=== PATIENT | male | born 1960 | race Hispanic/Latino ===

== ENCOUNTER 2016-09-21 12:15 | Observation (INO) | payer SELFPAY ==
[~2016-09-21] VITALS: Ht 167.6 cm; Wt 89.0 kg
[2016-09-21 12:47] LABS: HEMOGLOBIN 14.3 g/dl (14.0-18.0); IMMATURE GRANULOCYTES 0.2 % (0.0-1.0); MEAN CELL VOLUME 89.4 fL CALC (80.0-100.0); MEAN CORPUSCULAR HGB 29.7 pG CALC (26.0-32.0); MEAN CORPUSCULAR HGB CONC 33.3 g/L CALC (32.0-36.0); NEUT# 4.98 thou/uL (1.82-7.42); RED BLOOD COUNT 4.81 mill/uL (4.70-6.10); RED CELL DISTRI WIDTH 12.2 % (11.5-15.5)
[2016-09-21 13:07] LABS: ALKALINE PHOSPHATASE 53 u/l (38-126); ANION GAP 13 (6-22 (CALC)); BILIRUBIN, TOTAL 0.6 mg/dL (0.0-1.4); BUN 15 mg/dL (9-20); BUN/CREATININE RATIO 19 (12-20 (CALC)); CALCIUM 9.5 mg/dL (8.4-10.2); CARBON DIOXIDE 27 mmol/l (22-30); CHLORIDE 104 mmol/l (95-108); CREATININE 0.8 mg/dL (0.7-1.3); GFR > 60 ML/MIN (>=60 (CALC)); GFR FOR AFR.AMER. > 60 ML/MIN (>=60 (CALC)); GLUCOSE 104 mg/dL (75-110); POTASSIUM 3.8 mmol/l (3.5-5.1); SGOT/AST 16 u/l (17-59); SGPT/ALT 29 u/l (21-72); SODIUM 140 mmol/l (137-146); TOTAL PROTEIN 6.9 g/dL (6.3-8.2)
[2016-09-21 13:19] LABS: MYOGLOBIN 22 ng/mL (0 - 121)
[2016-09-21] MEDS ORDERED: BLOOD PRESSURE MED 2 (14:35)
[2016-09-21] MEDS ORDERED: BLOOD PRESSURE MED 1 (14:35)
[2016-09-21] MEDS ORDERED: NITROSTAT0.4 MG SL (14:35)
[2016-09-21 15:38] VITALS: BP 139/82
[2016-09-21 19:51] VITALS: BP 120/67
[2016-09-22] VITALS: BP 109/62; BP 136/81
[2016-09-22 04:22] VITALS: BP 119/69
[2016-09-22 04:47] LABS: URINE BILIRUBIN - DIPSTICK NEGATIVE (NEGATIVE); URINE BLOOD DIPSTICK NEGATIVE (NEGATIVE); URINE CLARITY SLIGHT CLOUDY; URINE COLOR YELLOW; URINE GLUCOSE - DIPSTICK 100 mg/dL (NEGATIVE); URINE KETONE NEGATIVE (NEGATIVE); URINE LEUK ESTERASE NEGATIVE (NEGATIVE); URINE NITRITE - DIPSTICK NEGATIVE (Negative); URINE PROTEIN - DIPSTICK NEGATIVE (NEG-TRACE); URINE SPECIFIC GRAVITY 1.025; URINE UROBILINOGEN - DIPSTICK 0.2 E.U./dL (0.2)
[2016-09-22 05:45] LABS: HEMATOCRIT 44.9 % (39.0-50.0); HEMOGLOBIN 14.9 g/dl (14.0-18.0); IMMATURE GRANULOCYTES 0.9 % (0.0-1.0); MEAN CELL VOLUME 89.8 fL CALC (80.0-100.0); MEAN CORPUSCULAR HGB 29.8 pG CALC (26.0-32.0); MEAN CORPUSCULAR HGB CONC 33.2 g/L CALC (32.0-36.0); NEUT# 4.65 thou/uL (1.82-7.42); RED CELL DISTRI WIDTH 12.5 % (11.5-15.5)
[2016-09-22 05:55] LABS: ANION GAP 12 (6-22 (CALC)); BUN 15 mg/dL (9-20); BUN/CREATININE RATIO 19 (12-20 (CALC)); CALCULATED LDLCHOLESTEROL 57 mg/dL (62-129 (CALC)); CARBON DIOXIDE 24 mmol/l (22-30); CHLORIDE 107 mmol/l (95-108); CREATININE 0.8 mg/dL (0.7-1.3); GFR > 60 ML/MIN (>=60 (CALC)); GFR FOR AFR.AMER. > 60 ML/MIN (>=60 (CALC)); GLUCOSE 100 mg/dL (75-110); HDL CHOLESTEROL 39 mg/dL (>=40); POTASSIUM 4.2 mmol/l (3.5-5.1); SODIUM 139 mmol/l (137-146); TOTAL CHOLESTEROL 126 mg/dl (0-199); TOTAL TRIGLYCERIDES 151 mg/dl (30-149); VLDL CHOLESTROL 30 mg/dl (8-62 (CALC))
[2016-09-22 07:34] VITALS: BP 107/66
[2016-09-22] MEDS ORDERED: ADLT ASA LOW81 MG PO (10:01)
== END 2016-09-22 11:20 | disposition home or self-care (01) | DRG 311 ==
LOC: ENPENDDIS → ED 12:15 → ED-I 14:00 → ED 15:07 → MS2 15:08
PROVIDERS: Emergency Medicine; ADMIT Internal Medicine; ATTEND Internal Medicine
DX: I20.9 Angina pectoris, unspecified (principal); I10 Essential (primary) hypertension; R07.89 Other chest pain; Z72.89 Other problems related to lifestyle
CPT/HCPCS: G0378; J1650

== ENCOUNTER 2018-01-12 23:09 | Observation (INO) | payer BC ==
[~2018-01-12] VITALS: Ht 167.6 cm; Wt 92.3 kg
[~2018-01-12 23:09] MED LIST: ADLT ASA LOW81 MG PO; BLOOD PRESSURE MED 1; BLOOD PRESSURE MED 2; NITROSTAT0.4 MG SL
--- NOTE | 2018-01-12 23:11 | NUR ---
EKG DONE. LABS DRAWN.
[2018-01-12 23:41] LABS: HEMATOCRIT 41.9 % (39.0-50.0); HEMOGLOBIN 14.2 g/dl (14.0-18.0); IMMATURE GRANULOCYTES 0.1 % (0.0-5.0); MEAN CELL VOLUME 90.1 fL CALC (80.0-100.0); MEAN CORPUSCULAR HGB 30.5 pG CALC (26.0-32.0); MEAN CORPUSCULAR HGB CONC 33.9 g/L CALC (32.0-36.0); NEUT# 4.74 thou/uL (1.82-7.42); RED BLOOD COUNT 4.65 mill/uL (4.70-6.10)
[2018-01-12 23:52] LABS: ALBUMIN 3.7 g/dL (3.2-5.0); ALKALINE PHOSPHATASE 56 u/l (38-126); AMYLASE 53 u/l (30-110); ANION GAP 16 (6-22 (CALC)); BILIRUBIN, TOTAL 0.4 mg/dL (0.0-1.4); BUN 19 mg/dL (9-20); BUN/CREATININE RATIO 21 (12-20 (CALC)); CARBON DIOXIDE 25 mmol/l (22-30); CHLORIDE 104 mmol/l (95-108); CREATININE 0.9 mg/dL (0.7-1.3); GFR > 60 ML/MIN (>=60 (CALC)); GFR FOR AFR.AMER. > 60 ML/MIN (>=60 (CALC)); LIPASE 152 u/l (23-300); POTASSIUM 3.6 mmol/l (3.5-5.1); SGOT/AST 26 u/l (17-59); SGPT/ALT 42 u/l (21-72); SODIUM 142 mmol/l (137-146); TOTAL PROTEIN 6.3 g/dL (6.3-8.2)
[2018-01-13 00:04] LABS: MYOGLOBIN 26 ng/mL (0 - 121)
--- NOTE | 2018-01-13 02:48 | NUR ---
REPORT CALLED TO JANEEN.
--- NOTE | 2018-01-13 03:00 | NUR ---
TO FLOOR VIA STRETCHER/ON MONITOR. AT BEDSIDE. NAD.
[2018-01-13 03:04] VITALS: BP 138/82
--- NOTE | 2018-01-13 03:04 | NUR ---
PT ARRIVED ON FLOOR VIA STRETCHER WITH ER NURSE. PT AMBULATED TO SCALE, THEN TO BED. VITALS OBTAINED. PT HAD STEADY GAIT. PT DENIES PAIN. RESP EVEN AND UNLABORED. TELE ON. LUNGS CLEAR/DIMINISHED IN BASES. ABD SOFT, ACTIVE BOWEL SOUNDS. PT REPORTS HAVING A BM RIGHT BEFORE COMING TO THE FLOOR. PEDAL PULSES PALPATED BILAT. IV LAC PATENT; FLUSHED WITHOUT DIFFICULTY. ADMIT QUESTIONS OBTAINED. PT REPORTS NOT TAKING ANY HOME MEDS FOR THE LAST COUPLE MONTHS. FAMILY AT BEDSIDE. PT ENCOURAGED TO CALL FOR ASSISTANCE AMBULATING. FREQUENT ROUNDS MADE. CALL LIGHT WITHIN REACH.
--- NOTE | 2018-01-13 05:10 | NUR ---
PT WOKE UPON ENTRY. PT DENIES PAIN. RESP EVEN AND UNLABORED. ASSESSMENT UNCHANGED. TELE ON. FAMILY AT BEDSIDE. CALL LIGHT WITHIN REACH.
[2018-01-13 05:48] VITALS: BP 125/73
--- NOTE | 2018-01-13 07:15 | NUR ---
BEDSIDE REPORT RECEIVED BY MAHAMED. PT IS RESTING IN BED WITH NO S/S OF DISTRESS NOTED. PT DENIES NEEDS AT THIS TIME.
[2018-01-13 07:44] VITALS: BP 138/84
--- NOTE | 2018-01-13 08:45 | NUR ---
PT IS SITTING IN THE SIDE OF THE BED. ASSESSMENT DONE . TELE IN PLACE. RESPS EVEN AND UNLABORED. PT IS A&O X3. PT DENIES PAIN AT THIS TIME. PT JUST STATED THAT HE FEELS HIS LEGS SOMETIMES NUMB BUT ABLE TO MOVE THEM. IN ROOM. SAFETY PRECAUTIONS REINFORCED AND CALL LIGHT IN REACH.
[2018-01-13 09:31] LABS: TSH, 3RD GENERATION 4.25 uIU/mL (0.47 - 4.68)
[2018-01-13 11:20] LABS: CHOLESTEROL HDL RATIO 3.8 (<4.4 (CALC))
--- NOTE | 2018-01-13 12:03 | NUR ---
PT IS EATING HIS LUNCH WITH NO S/S OF DISTRESS NOTED. FAMILY IN ROOM. PT DENIES NEEDS AT THIS TIME. CALL LIGHT IN REACH.
[2018-01-13 12:46] VITALS: BP 127/77
[2018-01-13] MEDS ORDERED: ASPIRIN ADULT L81 M2 PO (13:19)
[2018-01-13] MEDS ORDERED: AMLODIPINE BESYL5 MG PO (13:19)
--- NOTE | 2018-01-13 15:33 | NUR ---
Discharge instructions given. Patient verbalizes understanding of same. Discharged in stable condition via Wheelchair to Home with spouse. All belongings sent with pt.
== END 2018-01-13 15:35 | disposition home or self-care (01) | DRG 313 ==
LOC: ED 23:09 → ED-I 01-13 01:00 → ED 01-13 01:49 → MS2 01-13 01:50
PROVIDERS: Emergency Medicine; Nurse Practitioner Family; ADMIT Internal Medicine; ATTEND Internal Medicine
DX: R07.2 Precordial pain (principal); I10 Essential (primary) hypertension; Z91.14 Patient's other noncompliance with medication regimen; Z72.89 Other problems related to lifestyle
CPT/HCPCS: G0378